=== PATIENT | male | born 1995 | race Caucasian/White ===

== ENCOUNTER 2018-05-14 23:39 | Emergency (ER) | payer OTHER ==
--- NOTE | 2018-05-14 23:43 | PDOC ---
History of Present Illness - General Stated Complaint: LACERATION Time Seen by Provider: 05/14/18 23:41 History Source: Patient Exam Limitations: No Limitations - History of Present Illness Initial Comments: 05/15/18 00:11 23-year-old male presents to the ER complaining of a laceration to the left lateral eyebrow. Patient states while playing [place] soccer, he got elbowed in the left eyebrow. Bleeding controlled with direct pressure prior to his arrival. Patient denies headache, dizziness, lightheadedness, neck pain/ stiffness, back pains, visual disturbance, eye pain or diplopia. Patient denies any other complaints. Last tetanus 3 months ago. 05/15/18 00:[address] Ernie Sanchez Past History - Past Medical History Allergies/Adverse Reactions: Allergies Allergy/AdvReac Type Severity Reaction Status Date / Time No Known Allergies Allergy Verified 05/15/18 00:09 Home Medications: Ambulatory Orders NK [No Known Home Medication] 05/15/18 Review of Systems - Review of Systems Able to Perform ROS?: Yes Comments:: 05/14/18 23:42 CONSTITUTIONAL: Absent: fever, chills, diaphoresis, generalized weakness, malaise, loss of appetite HEENT: +LEft lat eyebrow lac Absent: rhinorrhea, nasal congestion, throat pain, throat swelling, difficulty swallowing, mouth swelling, ear pain, eye pain, visual Changes CARDIOVASCULAR: Absent: chest pain, loss of consciousness, palpitations, irregular heart rate, peripheral edema RESPIRATORY: Absent: cough, shortness of breath, dyspnea with exertion, orthopnea, wheezing, stridor, hemoptysis GASTROINTESTINAL: Absent: abdominal pain, abdominal distension, nausea, vomiting, diarrhea, constipation, melena, hematochezia GENITOURINARY: Absent: dysuria, frequency, urgency, hesitancy, hematuria, flank pain, genital pain MUSCULOSKELETAL: Absent: myalgia, arthralgia, joint swelling SKIN: Absent: rash, itching, pallor HEMATOLOGIC/IMMUNOLOGIC: Absent: easy bleeding, easy bruising, lymphadenopathy, frequent infections ENDOCRINE: Absent: unexplained weight gain, unexplained weight loss, heat intolerance, cold intolerance NEUROLOGIC: Absent: headache, focal weakness or paresthesias, dizziness, unsteady gait, seizure, mental status changes, bladder or bowel incontinence Is the patient limited Beninese proficient: No *Physical Exam - Physical Exam Comments: 05/14/18 23:42 GENERAL: Well developed, well nourished. Awake and alert. No acute distress. HEENT: +Left lat eyebrow lac 2cm transverse; partial thickness Normocephalic, atraumatic. PERRLA, EOMI. No conjunctival pallor. Sclera are non- icteric. Moist mucous membranes. Oropharynx is clear. NECK: Supple. Full ROM. No JVD. Carotid pulses 2+ and symmetric, without bruits. No thyromegaly. No lymphadenopathy. CARDIOVASCULAR: Regular rate and rhythm. No murmurs, rubs, or gallops. Distal pulses are 2+ and symmetric. PULMONARY: No evidence of respiratory distress. Lungs clear to auscultation bilaterally. No wheezing, rales or rhonchi. ABDOMINAL: Soft. Non-tender. Non-distended. No rebound or guarding. No organomegaly. Normoactive bowel sounds. MUSCULOSKELETAL Normal range of motion at all joints. No bony deformities or tenderness. No CVA tenderness. EXTREMITIES: No cyanosis. No clubbing. No edema. No calf tenderness. SKIN: Warm and dry. Normal capillary refill. No rashes. No jaundice. NEUROLOGICAL: Alert, awake, appropriate. Cranial nerves 2-12 intact. No deficits to light touch and temperature in face, upper extremities and lower extremities. No motor deficits in the in face, upper extremities and lower extremities. Normoreflexic in the upper and lower extremities. Normal speech. Toes are down- going bilaterally. Gait is normal without ataxia. *DC/Admit/Observation/Transfer Diagnosis at time of Disposition: Laceration of eyebrow Qualifiers: Encounter type: initial encounter Laterality: left Qualified Code(s): S01.112A - Laceration without foreign body of left eyelid and periocular area, initial encounter - Discharge Dispostion Disposition: HOME Condition at time of disposition: Stable Decision to Admit order: No - Referrals - Patient Instructions Printed Discharge Instructions: DI for Laceration Repair Additional Instructions: Keep the incision clean and dry for 24 hours. After 24 hours, you may allow the soap and water to rinse off your incision. Avoid direct pressure of the water to the incision. Pat the incision dry with a clean clothe. Apply a small amount of bacitracin onto the incision. Cover the incision loosely with a bandaid. Take tylenol/motrin as needed for pain. Follow up with your physician or the ER in 48 hours for a wound check. Return to the ER if you notice red streaks, increase redness/swelling/severe pain to the incision. Suture removal in 6 days. - Post Discharge Activity
--- NOTE | 2018-05-15 00:06 | PDOC ---
*Physical Exam - Physical Exam Comments: 05/15/18 00:05 The patient was examined by [LUIS Beck] under my direct supervision. I personally evaluated the patient. I concur with the above findings and the plan of care.
[2018-05-15 00:19] VITALS: BP 138/74; PULSE 88; TEMP 97.6; BMI 25.0
--- NOTE | 2018-05-15 00:44 | PDOC ---
*Physical Exam - Vital Signs Last Vital Signs Temp Pulse Resp BP Pulse Ox 97.6 F 88 20 138/74 99 05/15/18 00:11 05/15/18 00:11 05/15/18 00:11 05/15/18 00:11 05/15/18 00:11 - Physical Exam General Appearance: Yes: Nourished, Appropriately Dressed HEENT: positive: Normal Voice Neck: positive: Trachea midline Musculoskeletal: positive: Normal Inspection Extremity: positive: Normal Inspection Integumentary: positive: Normal Color, Dry, Warm, Other (2.5 cm laceration to left eyebrow. superficial. ) Neurologic: positive: Fully Oriented, Alert *DC/Admit/Observation/Transfer Diagnosis at time of Disposition: Laceration of eyebrow Qualifiers: Encounter type: initial encounter Laterality: left Qualified Code(s): S01.112A - Laceration without foreign body of left eyelid and periocular area, initial encounter - Discharge Dispostion Disposition: HOME Condition at time of disposition: Stable - Referrals - Patient Instructions Printed Discharge Instructions: DI for Laceration Repair Additional Instructions: Keep the incision clean and dry for 24 hours. After 24 hours, you may allow the soap and water to rinse off your incision. Avoid direct pressure of the water to the incision. Pat the incision dry with a clean clothe. Apply a small amount of bacitracin onto the incision. Cover the incision loosely with a bandaid. Take tylenol/motrin as needed for pain. Follow up with your physician or the ER in 48 hours for a wound check. Return to the ER if you notice red streaks, increase redness/swelling/severe pain to the incision. Suture removal in 6 days. - Post Discharge Activity Procedure Note Procedure: Placed 5 sutures of 5-0 nylon in the left eyebrow. 2.5 cm superficial simple laceration with clean edges. Washed thoroughly with sterile water and preformed sterile technique in applying suture. Used 1% lidocaine, approximately 1.5 mL for appropriate analgesia. No complications throughout the procedure. neosporin antibiotic ointment applied at the end. Stated to patient to follow up with PCP for suture removal. .
== END 2018-05-15 00:41 | disposition home or self-care (01) ==
LOC: JER 23:39
PROC: 0HQ1XZZ Repair Face Skin, External Approach (ICD-10-PCS; principal; 2018-05-14)
DX: S01.112A Laceration without foreign body of left eyelid and periocular area, initial encounter (principal); W50.0XXA Accidental hit or strike by another person, initial encounter; Y93.66 Activity, soccer; Y92.322 Soccer field as the place of occurrence of the external cause; Y99.8 Other external cause status
CPT/HCPCS: 99283-25